=== PATIENT | male | born 2000 | race Caucasian/White ===

== ENCOUNTER 2020-09-15 12:41 | Emergency (ER) | payer OTHER ==
[~2020-09-15] VITALS: Ht 172.7 cm; Wt 84.1 kg
[2020-09-15] MEDS ORDERED: IBUPROFEN 800 MG TABLET PO ONE (13:15)
[2020-09-15 14:30] VITALS: BP 136/81
== END 2020-09-15 14:59 | disposition home or self-care (01) ==
LOC: EMS 12:47
DX: M25.561 Pain in right knee (principal)
CPT/HCPCS: 99283

== ENCOUNTER 2020-12-25 15:37 | Emergency (ER) | payer OTHER ==
[~2020-12-25] VITALS: Ht 167.6 cm; Wt 68.2 kg
[2020-12-25] MEDS ORDERED: SODIUM CHLORIDE 0.9% 1,000 ML IV ONE (17:15)
[2020-12-25] MEDS ORDERED: ONDANSETRON HCL 4 MG/2 ML VIAL IVP ONE (17:15)
[2020-12-25 17:25] LABS: BASOPHILS % (AUTO) 0.3 % (0.0-2.0); EOSINOPHILS % (AUTO) 0 % (1.0-6.0); HEMATOCRIT 43.9 % (41-53); HEMOGLOBIN 15.2 g/dL (13.5-17.5); LYMPHOCYTES # (AUTO) 0.9 K/uL (1.0-4.8); LYMPHOCYTES % (AUTO) 15.4 % (22.0-44.0); MEAN CORPUSCULAR HGB CONC 34.7 G/dL (31.0-37.0); MEAN CORPUSCULAR VOLUME 89 fL (80-100); MONOCYTES # (AUTO) 0.6 K/uL (0.1-1.0); MONOCYTES % (AUTO) 10.5 % (2.0-9.0); NEUTROPHILS # (AUTO) 4.4 K/uL (1.8-7.7); NEUTROPHILS % (AUTO) 73.8 % (40.0-70.0); PLATELET COUNT (AUTO) 185 K/uL (150-450); RED BLOOD CELL COUNT(AUTO) 4.92 MIL/uL (4.50-5.90); RED CELL DISTRIBUTION WIDTH 12.3 % (11.5-14.5)
[2020-12-25 17:33] LABS: ANION GAP 14 mmol/L (8-16); CALCIUM, TOTAL 9.2 mg/dL (8.8-10.5); CARBON DIOXIDE 26 mmol/L (22-29); CHLORIDE 96 mmol/L (98-107); CREATININE 0.92 mg/dL (0.60-1.30); GLOMERULAR FILTR. RATE CALC > 60 mL/min (>60); GLUCOSE,RANDOM 103 mg/dL (70-110); POTASSIUM 3.6 mmol/L (3.5-5.1); SODIUM SERUM 136 mmol/L (136-145); UREA NITROGEN, BLOOD 10 mg/dL (7-18)
[2020-12-25 17:38] LABS: ALANINE AMINOTRANSFERASE 30 U/L (12-78); ALBUMIN 4.4 g/dL (3.4-5.0); ALKALINE PHOSPHATASE 91 U/L (46-116); ASPARTATE AMINOTRANSFERASE 18 U/L (15-37); BILIRUBIN,TOTAL 0.5 mg/dL (0.1-1.0); TOTAL PROTEIN, SERUM 8.9 g/dL (6.4-8.2)
[2020-12-25 17:42] VITALS: BP 150/77
[2020-12-25 18:02] LABS: COVID AG,FIA SOURCE NASOPHARYNGEAL
== END 2020-12-25 19:08 | disposition home or self-care (01) ==
LOC: EMS 15:38
DX: U07.1 COVID-19 (principal)
CPT/HCPCS: 36415; 80053; 85025; 87426; 96361; 96374; 99283; J2405; J7030

== ENCOUNTER 2021-01-04 12:33 | Emergency (ER) | payer OTHER ==
[~2021-01-04] VITALS: Ht 172.7 cm; Wt 79.5 kg
[2021-01-04 12:36] VITALS: BP 130/82
[2021-01-04 13:20] LABS: COVID AG,FIA SOURCE NASOPHARYNGEAL
== END 2021-01-04 14:10 | disposition home or self-care (01) ==
LOC: EMS 12:33
DX: Z20.822 Contact with and (suspected) exposure to COVID-19 (principal)
CPT/HCPCS: 99283